=== PATIENT | male | born 1950 | race Caucasian/White ===

== ENCOUNTER → 2017-04-29 | Outpatient (CLI) | payer OTHER ==
--- NOTE | 2017-04-29 14:58 | MAM ---
EXAM DESCRIPTION: 3D Screening BILATERAL: Tomosynthesis mammography. CLINICAL HISTORY: 66 yearsMaleLUMP between breasts was treated with homeopathic ointment and resolved. Swelling and extreme tenderness around the right nipple. Application of homeopathic ointment which caused scab on nipple but swelling and tenderness have decreased. No problems with the left breast or nipple. COMPARISON: Targeted retroareolar right breast ultrasound on this visit. No prior reports available. TECHNIQUE: Bilateral CC , LM, and MLO projection full-field images, 3-D tomosynthesis digital mammographic technique. Also bilateral synthesized CC/ MLO , and LM full-field images. CAD not utilized. FINDINGS: The breast parenchymal density pattern is: Scattered areas of fibroglandular density right breast. Left Breast is almost entirely fatty. Artifact around the right nipple which may represent scan or residual appointment. Minimal skin thickening. Branching fibroglandular type density extending into the middle third of the right breast and not seen in the left breast. No focal, stellate mass or density, focal asymmetry , and no suspicious microcalcifications bilaterally. This is most likely inflammatory change and/or dilated ducts. IMPRESSION: BI-RADS CATEGORY: 3 PROBABLY BENIGN. Management: Short interval (6-month) follow-up right breast or continued surveillance. The findings and follow-up plan were reviewed in person with the patient following the examination. Patient instructed to seek medical attention if swelling and tenderness return in the right breast. Alternatively, breast MRI with gadolinium IV contrast could be considered. Written communication explaining the results and follow-up will be mailed to the patient and referring care provider Electronically signed by: Thony Rossi MD 04/29/2017 2:57 PM CDT
--- NOTE | 2017-04-29 14:59 | US ---
EXAM DESCRIPTION: Breast, right: Ultrasound CLINICAL HISTORY: 66 yearsMaleBREAST LUMP between breasts was treated with homeopathic ointment and resolved. Swelling and extreme tenderness around the right nipple. Application of homeopathic ointment which caused scab on nipple but swelling and tenderness have decreased. No problems with the left breast or nipple. COMPARISON: Digital 3-D diagnostic, tomosynthesis bilateral breasts on this visit. TECHNIQUE: Transcutaneous scanning of the retroareolar right breast utilizing two-dimensional mode. Scanning performed by the rv service technician and Dr. Rossi. FINDINGS: Some dilated ducts are noted. Parenchymal edema. No discrete solid mass or cyst. IMPRESSION: BI-RADS CATEGORY: 3 - PROBABLY BENIGN. Management: Short interval (6-month) mammography/ultrasound follow-up or continued surveillance. The FINDINGS and follow-up plan were reviewed with the patient in person following the examination. Patient instructed to seek medical attention if swelling and tenderness return in the right breast. Written communication explaining the IMPRESSION and follow-up will be mailed to the patient and referring care provider Electronically signed by: Thony Rossi MD 04/29/2017 2:58 PM CDT
== END | disposition home or self-care (01) ==
LOC: MAMMO 13:51
PROVIDERS: ATTEND Surgery
DX: N63.0 Unspecified lump in unspecified breast (principal)